=== PATIENT | female | born 1990 | race Caucasian/White ===

== ENCOUNTER → 2016-12-09 | Outpatient (CLI) | payer BC ==
[~2016-12-09] MED LIST: ALBUAER19 INH; PRENTAB26 PO
[2016-12-09 16:11] LABS: URINE APPEARANCE CLEAR (CLEAR); URINE BILIRUBIN NEG (NEG); URINE COLOR YELLOW; URINE EPITHELIAL CELL AUTO >30 /lpf (0-5); URINE NITRITE NEG (NEG); URINE PH 5.5 (4.5-7.5); URINE SPECIFIC GRAVITY 1.005 (1.000-1.030); UROBILINOGEN NEG (NEG)
[2016-12-09 16:15] LABS: MANUAL MICROSCOPIC REQUIRED? NO; REVIEW REQ? NO
== END | disposition home or self-care (01) ==
LOC: C.LABSPEC 14:46
PROVIDERS: ATTEND Obstetrics & Gynecology
DX: Z34.90 Encounter for supervision of normal pregnancy, unspecified, unspecified trimester (principal); Z36 Encounter for antenatal screening of mother

== ENCOUNTER → 2016-12-22 | Outpatient (CLI) | payer BC ==
[2016-12-22 10:53] LABS: BASO % 0.3 %; BASO ABS # 0.02 K/uL (0-0.2); COMPLETE YES; EOS % 2.7 %; HEMATOCRIT 37.4 % (37-47); IG% 0.1 %; LYMPH % 22.1 %; LYMPH ABS # 1.72 K/uL (1.2-3.4); MEAN CORPUSCULAR HEMOGLOBIN 29.5 pg (25-34); MEAN PLATELET VOLUME 9.5 fL (7.4-10.4); MONO % 4.2 %; NEUT % 70.6 %; PLATELET COUNT 244 K/uL (130-400); WHITE BLOOD COUNT 7.77 K/uL (4.8-10.8)
[2016-12-27 00:26] LABS: CHLAMYDIA TRACH RNA*** NOT DETECTED (NOT DETECTED); GC (NEIS GONORRHOEAE)RNA** NOT DETECTED (NOT DETECTED)
== END | disposition home or self-care (01) ==
LOC: C.LAB1850 09:45
PROVIDERS: ATTEND Obstetrics & Gynecology
DX: Z34.81 Encounter for supervision of other normal pregnancy, first trimester (principal)

== ENCOUNTER → 2017-02-07 | Outpatient (CLI) | payer BC ==
[2017-02-07 15:12] LABS: GTGD 50 Grams
== END | disposition home or self-care (01) ==
LOC: C.LAB1850 11:43
PROVIDERS: ATTEND Obstetrics & Gynecology
DX: Z34.81 Encounter for supervision of other normal pregnancy, first trimester (principal)

== ENCOUNTER → 2017-04-27 | Outpatient (CLI) | payer BC ==
[2017-04-27 12:06] LABS: HEMATOCRIT 35.9 % (37-47)
[2017-04-27 12:30] LABS: URINE APPEARANCE CLEAR (CLEAR); URINE BILIRUBIN NEG (NEG); URINE COLOR YELLOW; URINE NITRITE NEG (NEG); URINE PH 7.5 (4.5-7.5); URINE SPECIFIC GRAVITY 1.006 (1.000-1.030); UROBILINOGEN NEG (NEG)
[2017-04-27 12:37] LABS: MANUAL MICROSCOPIC REQUIRED? NO; REVIEW REQ? NO
[2017-04-27 13:05] LABS: GTGD 50 Grams
== END | disposition home or self-care (01) ==
LOC: C.LAB1850 09:48
PROVIDERS: ATTEND Obstetrics & Gynecology
DX: Z34.82 Encounter for supervision of other normal pregnancy, second trimester (principal)

== ENCOUNTER → 2017-06-29 | Outpatient (CLI) | payer BC | END | disposition home or self-care (01) | LOC: C.LABSPEC 12:44 | PROVIDERS: ATTEND Obstetrics & Gynecology | DX: Z34.83 Encounter for supervision of other normal pregnancy, third trimester (principal) ==

== ENCOUNTER 2017-07-19 17:01 | Inpatient (IN) | payer BC ==
[~2017-07-19] VITALS: Ht 165.1 cm; Wt 86.4 kg
[2017-07-19] MEDS ORDERED: LACTATED RINGER'S 1000ML 1,000 ML IV PRN (17:49)
[2017-07-19] MEDS ORDERED: LACTATED RINGER'S 1000ML 1,000 ML IV SCH (17:49)
[2017-07-19] MEDS ORDERED: PENICILLIN G POTASSIUM IV 3 MU in DEXTROSE 5% 100ML 100 ML IV PRN (18:00)
[2017-07-19] MEDS ORDERED: PENICILLIN G POTASSIUM IV 6 MU in DEXTROSE 5% 250ML 250 ML IV ONE (18:00)
[2017-07-19 18:40] LABS: HEMATOCRIT 36.7 % (37-47); MEAN CELL VOLUME 88.4 fL (80-100); MEAN CORPUSCULAR HEMOGLOBIN 30.4 pg (25-34); MEAN CORPUSCULAR HGB CONC 34.3 g/dl (32-36); MEAN PLATELET VOLUME 9.8 fL (7.4-10.4); PLATELET COUNT 192 K/uL (130-400); RED BLOOD COUNT 4.15 M/uL (4.2-5.4); WHITE BLOOD COUNT 11.22 K/uL (4.8-10.8)
[2017-07-19] MEDS ORDERED: BUPIVACAINE 0.25% 30 ML VIAL ONE (18:49)
[2017-07-19] MEDS ORDERED: FENTANYL 2MCG/ML ROPIV 1.25MG/ML 100ML BAG EPI ONE (18:49)
[2017-07-19] MEDS ORDERED: EpHEDrine SULFATE INJ 50 MG/ML AMP ONE (18:49)
[2017-07-19] MEDS ORDERED: FENTANYL CITRATE INJ 50 MCG/1 ML 2 ML VIAL ONE (18:50)
[2017-07-19] MEDS ORDERED: LACTATED RINGER'S 1000ML 500 ML IV PRN (19:19)
[2017-07-19] MEDS ORDERED: EpHEDrine SULFATE INJ 50 MG/ML AMP IV PRN (19:30)
[2017-07-19] MEDS ORDERED: FENTANYL 2MCG/ML ROPIV 1.25MG/ML 100ML BAG EPI PRN (19:30)
[2017-07-19] MEDS ORDERED: NALOXONE HCL INJ 0.4 MG/1 ML VIAL/CARP IV PRN (19:30)
[2017-07-19 20:05] VITALS: Ht 165.1 cm; Wt 86.4 kg
[2017-07-19] MEDS ORDERED: OXYTOCIN 30 UNITS/500ML NSS IV ONE (20:55)
[2017-07-19] MEDS ORDERED: HYDROCORTISONE ACETATE 25 MG SUPP PR PRN (21:15)
[2017-07-19] MEDS ORDERED: LANOLIN OINT EXT PRN ×2 (21:15)
[2017-07-19] MEDS ORDERED: SUPERCREAM 0.870 % 15GM JAR EXT PRN (21:15)
[2017-07-19] MEDS ORDERED: ACETAMINOPHEN 325 MG TAB PO PRN (21:15)
[2017-07-19] MEDS ORDERED: BENZOCAINE 20% AER SPR 82.5 GM CAN EXT PRN (21:15)
[2017-07-19] MEDS ORDERED: OXYCODONE/ACETAMINOPHEN 5-325 TAB PO PRN (21:15)
[2017-07-19] MEDS ORDERED: DIPHTHERIA/TETANUS/PERTUSSIS 0.5 ML SYR/VIAL IM. ONE (21:15)
[2017-07-19] MEDS ORDERED: OXYTOCIN 30 UNITS/500ML NSS IV PRN (21:15)
[2017-07-19] MEDS ORDERED: ACETAMINOPHEN/CODEINE 300/30MG TAB PO PRN (21:15)
--- NOTE | 2017-07-19 21:29 | Anesthesia Procedure Note ---
Anesthesia Epidural Removal Nt Date & Time Jul 19, 2017 at 21:29 Vital Signs Pain Intensity: 0.0 Notes Mental Status: alert / awake / arousable, participated in evaluation Nausea / Vomiting: adequately controlled Pain: adequately controlled Airway Patency, RR, SpO2: stable & adequate BP & HR: stable & adequate Hydration State: stable & adequate Neuraxial Anesthesia: was administered Anesthetic Complications: no major complications apparent, pt satisfied with anesthetic care Epidural: removed without complications, with tip intact
--- NOTE | 2017-07-19 21:40 | DELIVERY SUMMARY ---
DATE OF OPERATION: 07/19/2017 VAGINAL DELIVERY NOTE Angelica arrived in labor and delivery, group B strep positive, second baby, at 4 cm, in active labor. IV antibiotics was started. She requested epidural. ARM performed. Clear fluid was noted. She rapidly progressed to fully dilated and pushed over total of 1 contraction, delivered in right occiput anterior position. Mouth and nares suctioned and then baby had a tight nuchal cord, which was clamped and cut before delivery of the baby. Baby was delivered with gentle traction. No excessive force used. Live vigorous , female. Cord clamped and cut. Cord blood obtained. Placenta removed with gentle traction. No significant tearing noted. Estimated blood loss 100 mL. IV Pitocin started for uterine tone. Sponge and instrument counts correct. I attest to the content of the Intraoperative Record and any orders documented therein. Any exception s are noted below.
[2017-07-20] VITALS (7 sets, daily range): BP systolic 117–129; BP diastolic 69–95; PULSE 64–86; TEMP 36.5–37.1
[2017-07-20] MEDS: IBUPROFEN 600 MG TAB PO PRN ×3 (00:27→18:19)
[2017-07-20] MEDS: ACETAMINOPHEN/CODEINE 300/30MG TAB PO PRN ×4 (04:24→18:20)
--- NOTE | 2017-07-20 07:40 | Progress Note ---
Subjective Jul 20, 2017. Subjective conversation w/ patient, physical exam, chart review, lab review Ambulation: ambulating normally Voiding: no voiding problems Passing Gas: Yes Diet Tolerance: Regular Diet Lochia: Moderate Feeding Type: Bottle Feeding Pain: controlled Review of Systems Respiratory: No shortness of breath Cardiac: No chest pain Abdomen: No nausea, No vomiting Female : No dysuria Objective Vital Signs Date Time Temp Pulse Resp B/P (MAP) Pulse Ox O2 Delivery O2 Flow Rate FiO2 07/20/17 04:20 36.5 64 16 118/72 07/20/17 00:20 Room Air 07/20/17 00:20 36.5 86 16 117/71 Physical Exam General Appearance: WELL-APPEARING, WD/WN, NO APPARENT DISTRESS Respiratory/Chest: lungs clear Cardiovascular: regular rate, rhythm Abdomen: normal bowel sounds, soft Fundus: Firm, Non-Tender, Relation to Umbilicus (1 below U) Extremities: no calf tenderness Laboratory Results Last 24 Hours Test 07/19/17 18:26 07/20/17 05:55 White Blood Count 11.22 K/uL Red Blood Count 4.15 M/uL Hemoglobin 12.6 g/dL 12.3 g/dL Hematocrit 36.7 % 37.0 % Mean Corpuscular Volume 88.4 fL Mean Corpuscular Hemoglobin 30.4 pg Mean Corpuscular Hemoglobin Concent 34.3 g/dl RDW Standard Deviation 44.3 fL RDW Coefficient of Variation 13.6 % Platelet Count 192 K/uL Mean Platelet Volume 9.8 fL Assessment and Plan Problem List Medical Problems: (1) Fracture of 5th metatarsal Status: Acute Post- Day#: 1 Continue Routine Care: - Vital Signs reviewed and WNL. - Hemoglobin 12.3 - Blood Type: O+, GBS+, Rubella Immune. - Pt is doing well clinically. - Encourage Ambulation, Monitor and Control pain with Motrin PRN, Resume regular diet, Monitor Lochia - Continue routine post care CRISTIANE HERNANDEZ PGY1 FM RESIDENT Resident Physician Supervision Note: I interviewed and examined the patient. Discussed with Dr. Hernandez and agree with findings and plan as documented in the note. Any exceptions or clarifications are listed here: [None] Documented By: Yehuda Gauthier Resident Tracking Resident Involvement: Resident Care Provided Care Provided: OB Delivery
[2017-07-20] MEDS: PRENATAL VITAMIN TAB PO SCH (08:32)
[2017-07-20] MEDS: DOCUSATE SODIUM 100 MG CAP PO SCH (08:33)
--- NOTE | 2017-07-20 10:32 | Discharge Instructions ---
Discharge Instructions Date of Service Jul 20, 2017. Admission Reason for Admission: Check Labor Discharge Discharge Diagnosis / Problem: VAGINAL DELIVERY Discharge Goals Goal(s): Routine recovery after delivery Medications Continue Dispensed Medications: supercream, dermaplast, tucks, inhaler, lansinoh Activity Recommendations Activity Limitations: per Instructions/Follow-up section . Instructions / Follow-Up Instructions / Follow-Up ACTIVITY RECOMMENDATIONS: * Gradual return to full activity over the next 2-3 weeks. * No lifting - nothing heavier than baby over the next 2-3 weeks. * Do not engage in vigorous exercise, sexual activity or sports until cleared by your physician. * Do not drive or operate any motorized equipment until cleared by your physician. * You may shower/bathe daily. MEDICATIONS: For discomfort or pain, you may use Acetaminophen (Tylenol), Ibuprofen (Advil), or Naproxen (Aleve) following the package directions. For constipation you may use Colace following the package directions. BREAST CARE: If you are not breast feeding: * Wear a supportive bra 24 hours a day for one to two weeks. * Avoid stimulating your breasts and nipples as much as possible during the first few weeks after delivery. * When taking a shower, have the warm water hit your back, not breasts. * When your breasts feel full, apply ice packs. Usually three to four times a day helps ease the discomfort. * Take a mild pain medication (Tylenol / Motrin) when you are uncomfortable. If breast feeding: * Use breast milk to lubricate nipples. Lansinoh cream may be used for sore nipples. You do not need to remove cream prior to breast feeding. If using a different brand of cream, check the label for directions regarding removal of cream prior to nursing. * Wear a supportive bra. * If having problems with breasts or breast feeding, call a quality consultant or your health care provider. EPISIOTOMY CARE: After delivery, if you have an episiotomy (stitches), the following steps will ease discomfort and aid healing. * For the first 24 hours after delivery, place ice packs next to your episiotomy to help reduce swelling. * After the first 24 hour-period, sitz baths, either portable or in the tub, are suggested. A shower with a shower arm sprayed over the episiotomy may be comforting. * Nayana care should be done after each voiding and bowel movement. Squirt warm water from a plastic bottle over the perineum (region of the body between the anus and urinary opening) and pat dry. * Use Dermoplast to ease discomfort. Shake container. [place] directly over the episiotomy. Place a Tucks on a clean sanitary pad next to your episiotomy. SPECIAL CARE INSTRUCTIONS: When you are discharged from the hospital, it is important for you to follow the instructions listed below: * During the first week at home, you should be able to care for yourself and your baby. In addition, the usual light household activities are encouraged. * Limit your activities to the way you feel. Do not try to clean the house or move furniture. Be sensible. * If you actively engage in sports and have done so up until the time of your delivery, you may resume these activities as soon as you feel able. This may take up to one month or even longer. Use good judgment. * Continue to take your vitamins for at least six weeks after the of your baby. * Your diet need not be limited unless you were on a special diet before your delivery. Breast-feeding mothers need around 2500 calories per day and at least 64-80 ounces of fluid per day (8 to 10 glasses). * You should eat foods from the four major food groups. Crash diets or fad diets are to be avoided. Eating lean meats, fresh fruits and vegetables, low-fat dairy products, high fiber foods and a regular exercise program, will help you get back to your pre- weight without putting your health at risk. * Constipation is sometimes a problem after delivery. Take a mild laxative as needed. If breast feeding, Milk of Magnesia is acceptable to use. You may use a suppository or Fleets enema if no episiotomy. * A daily shower or tub bath is suggested. Be sure to thoroughly and gently dry the perineum. * A bloody vaginal discharge will usually continue until around four weeks post . A small amount of bleeding may continue for as long as six weeks. Vaginal discharge changes from the bright red bleeding after delivery to pink then brownish and finally yellowish-pink before becoming white and disappearing. * Bleeding may increase with activity. Your first period may come in 4-8 weeks. If you are breast feeding, your period may be delayed even longer. * Omro (sex) can begin whenever both you and your partner feel comfortable and do not have any form of genital infection. It is recommended that you wait at least six weeks for internal and external healing to occur. If you have questions, please talk to your health care practitioner. A condom should be used to prevent infection and . * Foreplay, gentle intercourse and lubrication is very important the first several times to prevent pain. A water-based lubricant such as K-Y jelly or Astroglide may be used. * If you have RH negative blood and your baby is RH positive, you will receive RHOGAM by injection prior to discharge. The nurse will give you a card to keep with you that has the date and place that you received RHOGAM after delivery. * During your care, you had a Rubella screen done to check for the presence of rubella antibodies in your blood. If your test was negative, you will receive a Rubella vaccine prior to discharge. This vaccine may cause a fever, soreness at the injection site and flu-like symptoms. If these symptoms persist, notify your health care practitioner. is not advised for one month after a Rubella vaccine. * Verbalizes understanding of car seat law as reviewed with patient nursing. * Car Seat hand-out given and reviewed with patient by nursing. * Shaken baby information reviewed with patient by nursing. Call you doctor if: * Heavy bleeding (saturating several pads an hour) or passing clots the size of your fist. * A fever >101 degrees F (38.3 degrees C) on two occasions four hours apart and /or chills. * Unusual pain in the pelvic or vaginal areas. * "Baby Blues" lasting longer than two weeks. If you have any questions or concerns, call your health care practitioner at . FOLLOW UP VISIT: * Please call the office at to schedule a 6 week examination. It is important you keep this appointment. It is important for you to make arrangements for either yearly or twice yearly check-ups thereafter. Current Hospital Diet Patient's current hospital diet: Regular OB Diet Discharge Diet Recommended Diet: Regular Diet Pending Studies Studies pending at discharge: no Medical Emergencies . Who to Call and When: Medical Emergencies: If at any time you feel your situation is an emergency, please call 311 immediately. . Non-Emergent Contact Non-Emergency issues call your: Primary Care Provider . . "Provider Documentation" section prepared by Reta Hernandez. . VTE Core Measure Inpt VTE Proph given/why not?: Treatment not indicated Resident Tracking Resident Involvement: Resident Care Provided Care Provided: OB Delivery
[2017-07-20] MEDS ORDERED: BISACODYL 5 MG TABEC PO SCH (20:00)
[2017-07-21] MEDS: IBUPROFEN 600 MG TAB PO PRN ×2 (02:45→15:57)
[2017-07-21] MEDS ORDERED: BISACODYL 10 MG SUPP PR PRN (07:00)
[2017-07-21 07:15] VITALS: BP 108/72; PULSE 74; TEMP 36.9
[2017-07-21] MEDS: ACETAMINOPHEN/CODEINE 300/30MG TAB PO PRN (07:38)
--- NOTE | 2017-07-21 08:15 | Progress Note ---
Subjective Jul 21, 2017. Subjective conversation w/ patient, physical exam Ambulation: ambulating normally Voiding: no voiding problems Passing Gas: Yes Diet Tolerance: Regular Diet Lochia: Moderate Feeding Type: Bottle Feeding Pain: controlled Review of Systems Respiratory: No shortness of breath Cardiac: No chest pain Abdomen: No nausea, No vomiting Female : No dysuria Objective Vital Signs Date Time Temp Pulse Resp B/P (MAP) Pulse Ox O2 Delivery O2 Flow Rate FiO2 07/21/17 07:15 36.9 74 16 108/72 07/20/17 23:15 36.5 76 18 129/95 07/20/17 23:15 Room Air 07/20/17 20:10 37.1 81 16 123/73 07/20/17 20:10 Room Air 07/20/17 15:00 Room Air 07/20/17 15:00 36.9 73 18 122/69 07/20/17 11:15 36.5 66 18 118/72 07/20/17 08:30 Room Air 07/20/17 08:30 36.5 76 18 119/71 Physical Exam General Appearance: WELL-APPEARING, WD/WN, NO APPARENT DISTRESS Respiratory/Chest: lungs clear, normal breath sounds Cardiovascular: regular rate, rhythm Abdomen: normal bowel sounds, soft Fundus: Firm, Non-Tender, Relation to Umbilicus (2 below U) Extremities: no calf tenderness Assessment and Plan Problem List Medical Problems: (1) Fracture of 5th metatarsal Status: Acute Post- Day#: 2 Continue Routine Care: - Vital Signs reviewed and WNL. - Hemoglobin reviewed. - Blood Type: O+, GBS+, Rubella immune. - Pt is doing well clinically. - Encourage Ambulation, Monitor and Control pain with Motrin PRN, Resume regular diet, Monitor Lochia - Encourage Breast Feeding. - Pt counselled on discharge instructions. CRISTIANE CLEMONS PGY1 FM RESIDENT Resident Physician Supervision Note: I interviewed and examined the patient. Discussed with Dr. Gomez and agree with findings and plan as documented in the note. Any exceptions or clarifications are listed here: [None] Documented By: Tariq Bhakta Resident Tracking Resident Involvement: Resident Care Provided Care Provided: OB Delivery
[2017-07-21] MEDS: DOCUSATE SODIUM 100 MG CAP PO SCH (09:12)
[2017-07-21] MEDS: PRENATAL VITAMIN TAB PO SCH (09:12)
[2017-07-21 16:30] VITALS: BP 132/82; PULSE 80; TEMP 36.7
[2017-07-21 20:05] VITALS: BP_DIAS 82; PULSE 80; TEMP 36.7
== END 2017-07-21 20:05 | disposition home or self-care (01) | DRG 775 ==
LOC: C.OPB 17:01 → C.LD 17:07 → C.OPB 17:50 → C.MS4N 07-20 00:17 → C.OBG 07-20 20:31
PROVIDERS: ADMIT Obstetrics & Gynecology; ATTEND Obstetrics & Gynecology
PROC: 10E0XZZ Delivery of Products of Conception, External Approach (ICD-10-PCS; principal; 2017-07-19)
DX: O69.1XX0 Labor and delivery complicated by cord around neck, with compression, not applicable or unspecified (principal); Z22.330 Carrier of Group B streptococcus; Z3A.39 39 weeks gestation of pregnancy; Z37.0 Single live birth